=== PATIENT | male | born 1980 | race Two or more races ===

== ENCOUNTER 2020-09-14 03:59 | Emergency (ER) | payer OTHER ==
[~2020-09-14] VITALS: Ht 172.7 cm; Wt 95.3 kg
== END 2020-09-14 10:28 | disposition home or self-care (01) ==
LOC: ER 03:59
DX: K85.90 Acute pancreatitis without necrosis or infection, unspecified (principal); K82.4 Cholesterolosis of gallbladder; K76.0 Fatty (change of) liver, not elsewhere classified; R10.13 Epigastric pain; R10.11 Right upper quadrant pain